=== PATIENT | female | born 1970 ===

== ENCOUNTER 2017-05-04 14:19 | Emergency (ER) | payer BC ==
[2017-05-04 14:33] VITALS: BP 131/77; PULSE 92; RESP 18; TEMP 98; O2SAT 99
--- NOTE | 2017-05-04 15:03 | ED PDOC ---
Lower Extremity Pain/Injury Time Seen by Provider: 05/04/17 14:19 Chief Complaint (Provider): lower extremity pain History Per: Patient History/Exam Limitations: no limitations Onset/Duration Of Symptoms: Mins (x30) Current Symptoms Are (Timing): Still Present Additional Complaint(s): 46 year old female with medical history of pulmonary embolism, presents to the emergency department for an evaluation of left ankle pain with a "popping" noise status post twisting ankle as she fell on the ground 30 minutes prior to arrival. PMD: none provided Past Medical History Reviewed: Historical Data, Nursing Documentation, Vital Signs Vital Signs: Last Vital Signs Temp 98 F 05/04/17 14:31 Pulse 92 H 05/04/17 14:31 Resp 18 05/04/17 14:31 BP 131/77 05/04/17 14:31 Pulse Ox 99 05/04/17 14:31 - Medical History PMH: Pulmonary Embolism - Family History Family History: States: Unknown Family Hx - Social History Current smoker - smoking cessation education provided: No Alcohol: None Drugs: Denies - Allergies Allergies/Adverse Reactions: Allergies Allergy/AdvReac Type Severity Reaction Status Date / Time No Known Allergies Allergy Verified 05/04/17 14:30 Review of Systems ROS Statement: Except As Marked, All Systems Reviewed And Found Negative Musculoskeletal: Positive for: Leg Pain (left ankle) Physical Exam - Reviewed Nursing Documentation Reviewed: Yes Vital Signs Reviewed: Yes - Physical Exam Appears: Positive for: Well, Non-toxic, No Acute Distress Head Exam: Positive for: ATRAUMATIC, NORMAL INSPECTION, NORMOCEPHALIC Extremity: Positive for: Tenderness (posterior aspect of left ankle on flexion and extension of foot). Negative for: Deformity (left foot and leg), Swelling ( left foot and leg) Neurologic/Psych: Positive for: Alert (x3), Oriented - ECG O2 Sat by Pulse Oximetry: 99 (RA) Pulse Ox Interpretation: Normal - Progress ED Course And Treament: Xry ankle left: no acute fx Xry tib-fib left: no acute injury xry of right knee: no acute injury noted. no signs of effusion Patient re-examined. Pain noted mostly posterior lateral malleoulus. No tenderness noted by Achilles tendon. Patient able to dorsoflex/plantarflex foot without difficulty Given crutch instructions; advised to use crutches only if she feels stable with them. Will provide note for decrease weight bearing activity. Medical Decision Making Medical Decision Making: Initial Impression: Left ankle pain S/P fall Initial Plan: * Xray knee (right) * Xray ankle (left) * Xray tibia/fibula (left) Scribe Attestation: Documented by Mel Wallace, acting as a scribe for Linda Richter PA-C. Provider Scribe Attestation: All medical record entries made by the Scribe were at my direction and personally dictated by me. I have reviewed the chart and agree that the record accurately reflects my personal performance of the history, physical exam, medical decision making, and the department course for this patient. I have also personally directed, reviewed, and agree with the discharge instructions and disposition. Disposition - Clinical Impression Clinical Impression: Left ankle sprain - Patient ED Disposition Is Patient to be Admitted: No - Disposition Referrals: Podiatry Clinic [Outside] Disposition: Routine/Home Disposition Time: 15:28 Condition: FAIR Additional Instructions: please tylenol as needed for pain control. Place ice on region of ankle injury x 2- 3 days to assist with swelling reduction Instructions: Ankle Sprain (DC) Forms: [facility] ED School/Work Excuse
--- NOTE | 2017-05-04 16:00 | RAD ---
PROCEDURE: Right Knee Radiographs. HISTORY: knee injury COMPARISON: None. FINDINGS: BONES: Normal. No fracture. JOINTS: Small posterior inferior patellar osteophyte JOINT EFFUSION: None. OTHER FINDINGS: None. IMPRESSION: No evidence of acute displaced fracture nor dislocation.
--- NOTE | 2017-05-04 16:02 | RAD ---
PROCEDURE: Left Ankle Radiographs. HISTORY: ankle injury COMPARISON: Comparison made with concurrent radiographs of the left tibia and fibula. FINDINGS: BONES: Normal. No fracture. JOINTS: Normal. No osteoarthritis. Ankle mortise maintained. Talar dome intact SOFT TISSUES: There appears to be mild diffuse soft tissue swelling OTHER FINDINGS: None. IMPRESSION: No evidence of acute displaced fracture nor dislocation. If symptoms persist or occult fracture suspected clinically consider repeat radiographs 5-10 days as most fractures should become radiographically evident this timeframe. Mild diffuse soft tissue swelling felt be present
--- NOTE | 2017-05-04 16:03 | RAD ---
PROCEDURE: Radiographs of the left tibia and fibula. HISTORY: injury COMPARISON: Correlation made with concurrent radiographs of the left ankle. TECHNIQUE: Frontal and lateral views obtained. FINDINGS: BONES: No evidence of acute displaced fracture nor dislocation. JOINT SPACES: Unremarkable. OTHER FINDINGS: None. IMPRESSION: There appears to be mild diffuse soft tissue swelling about the left ankle
== END 2017-05-04 15:50 | disposition home or self-care (01) ==
LOC: H.ER 14:19
DX: S93.402A Sprain of unspecified ligament of left ankle, initial encounter (principal); W19.XXXA Unspecified fall, initial encounter; Y92.89 Other specified places as the place of occurrence of the external cause; Z86.711 Personal history of pulmonary embolism